=== PATIENT | female | born 1980 | race Caucasian/White ===

== ENCOUNTER → 2020-02-02 12:55 | Outpatient (REF) | payer OTHER, SELFPAY ==
--- NOTE | 2020-02-02 13:00 | ECG_ITS ---
Hook-up date: 2020-02-02 13:11:00 Duration: 41:36:00 Test Indications: SYNCOPE Medications: [id number] QRS complexes * Ventricular ectopics which represent % of total QRS comp. * Supraventricular ectopics which represent % of total QRS comp. * Paced QRS complexs which represent % of total QRS comp. VENTRICULAR ECTOPY * Isolated * Bigeminal Cycles * Couplets * Runs * Beats in Runs * Beats LONGEST at * BPM at :: -- * Beats FASTEST at * BPM at :: -- SUPRAVENTRICULAR ECTOPY * Isolated * Couplets * Runs * Beats in Runs * Beats LONGEST at * BPM at :: -- * Beats FASTEST at * BPM at :: -- HEART RATES 47 MIN at 06:19:37 2020-02-03 78 AVG 135 MAX at 12:12:56 2020-02-03 LONGEST RR 1.5920 secs at 08:04:15 2020-02-03 S-T LEVELS Channel 1 - 128 mm at 13:11:00 2020-02-02 - 128 mm at 13:11:00 2020-02-02 Channel 2 - 128 mm at 13:11:00 2020-02-02 - 128 mm at 13:11:00 2020-02-02 Channel 3 - 128 mm at 03:23:01 -- - 128 mm at 03:23:01 Underlying rhythm is sinus; Average ventricular rate 78/min; range 47-135/min; No significant ectopy, tachy or payal arrhythmias; Patient did not report any symptoms in the diary Referred By: Jeanette Merchant Overread By: LARTICE LUZ
== END ==
LOC: HO.CARD 12:55
PROVIDERS: Visit Provider Psychiatry & Neurology Neurology
DX: R55 Syncope and collapse (principal)
CPT/HCPCS: 93225; 93226

== ENCOUNTER → 2020-03-10 12:58 | Outpatient (REF) | payer OTHER, SELFPAY ==
--- NOTE | 2020-03-10 13:00 | HM_ITS ---
REASON FOR TEST: Syncope. IDENTIFICATION DATA: The patient is a 39-year-old female. TECHNIQUE: The patient was hooked up to cardiac event monitor report for 47 days and continuously monitored during this time. FINDINGS: Baseline rhythm is sinus rhythm with heart rate varying from 70 beats per minute to 104 beats per minute. There were no arrhythmias noted. There were no patient reported events. CONCLUSION: Event monitor is remarkable for: 1. No significant arrhythmias. 2. No patient reported events. Isauro Leija MD NRS/MODL / [id number]
== END ==
LOC: HO.CARD 12:58
PROVIDERS: Visit Provider Psychiatry & Neurology Neurology
DX: R55 Syncope and collapse (principal)
CPT/HCPCS: 93270